=== PATIENT | female | born 1950 | race Two or more races ===

== ENCOUNTER 2018-03-30 07:12 | Emergency (ER) | payer OTHER ==
[~2018-03-30] VITALS: Ht 152.4 cm; Wt 86.2 kg
[2018-03-30] MEDS ORDERED: COZAAR50 MG PO (07:45)
[2018-03-30] MEDS ORDERED: LYRICA100 MG PO (07:45)
[2018-03-30] MEDS ORDERED: LEXAPRO5 MG PO (07:45)
[2018-03-30] MEDS ORDERED: NORVASC10 MG PO (07:46)
== END 2018-03-30 09:18 | disposition home or self-care (01) ==
LOC: ER 07:12
DX: S90.861A Insect bite (nonvenomous), right foot, initial encounter (principal); W57.XXXA Bitten or stung by nonvenomous insect and other nonvenomous arthropods, initial encounter; Y93.89 Activity, other specified; Y92.89 Other specified places as the place of occurrence of the external cause; Y99.8 Other external cause status

== ENCOUNTER → 2018-05-17 | Emergency (ER) | payer OTHER ==
[~2018-05-17] VITALS: Ht 152.4 cm; Wt 84.4 kg
[~2018-05-17] MED LIST: COZAAR50 MG PO; LEXAPRO5 MG PO; LYRICA100 MG PO; NORVASC10 MG PO
== END | disposition left against medical advice (07) ==
LOC: ER 21:25
DX: Z53.20 Procedure and treatment not carried out because of patient's decision for unspecified reasons (principal)